=== PATIENT | female | born 1990 | race Caucasian/White ===

== ENCOUNTER 2016-08-30 16:31 | Inpatient (IN) | payer MEDICAID ==
[~2016-08-30] VITALS: Ht 167.6 cm; Wt 106.1 kg
[~2016-08-30 16:31] MED LIST: ZIPR80CA2 PO
[2016-08-30] MEDS ORDERED: HALOPERIDOL 5 MG TABLET PO PRN (17:15)
[2016-08-30 17:33] VITALS: BP 113/69
[2016-08-30] MEDS ORDERED: LORazepam 2 MG/ML VIAL ONE (18:09)
[2016-08-30 18:15] VITALS: BP 152/73
[2016-08-30] MEDS ORDERED: LORazepam 2 MG/ML VIAL IM ONE (18:15)
[2016-08-30] MEDS ORDERED: HALOPERIDOL LACTATE 5 MG/ML VIAL IM ONE (18:15)
[2016-08-30] MEDS ORDERED: DiphenhydrAMINE HCL 50 MG/ML VIAL IM ONE (18:15)
[2016-08-31 16:40] VITALS: BP 125/61
[2016-09-01 06:52] VITALS: BP 122/73
[2016-09-01 08:50] LABS: BASOPHILS % (AUTO) 0.3 % (0.0-2.0); HEMATOCRIT 37.4 % (36-46); HEMOGLOBIN 12.1 g/dL (12.0-16.0); LYMPHOCYTES # (AUTO) 2.3 K/uL (1.0-4.8); LYMPHOCYTES % (AUTO) 24.8 % (22.0-44.0); MEAN CORPUSCULAR HEMOGLOBIN 28.9 pg (26.0-34.0); MEAN CORPUSCULAR HGB CONC 32.2 G/dL (31.0-37.0); MEAN CORPUSCULAR VOLUME 90 fL (80-100); MONOCYTES # (AUTO) 0.5 K/uL (0.1-1.0); MONOCYTES % (AUTO) 5.1 % (2.0-9.0); NEUTROPHILS # (AUTO) 6.3 K/uL (1.8-7.7); NEUTROPHILS % (AUTO) 68.8 % (40.0-70.0); PLATELET COUNT (AUTO) 295 K/uL (150-450); RED BLOOD CELL COUNT(AUTO) 4.18 MIL/uL (4.00-5.20); RED CELL DISTRIBUTION WIDTH 13.9 % (11.5-14.5); WHITE BLOOD COUNT (AUTO) 9.2 K/uL (4.5-11.0)
[2016-09-01 08:58] LABS: HEMOGLOBIN A1C 5.5 % (4.5-6.2)
[2016-09-01] MEDS: RisperiDONE 3 MG TABLET PO SCH ×2 (09:15→17:00)
[2016-09-01 09:29] LABS: ALANINE AMINOTRANSFERASE 19 U/L (12-78); ALBUMIN 3.3 g/dL (3.4-5.0); ANION GAP 9 mmol/L (8-16); ASPARTATE AMINOTRANSFERASE 13 U/L (15-37); BILIRUBIN,TOTAL 0.2 mg/dL (0.1-1.0); CALCIUM, TOTAL 8.5 mg/dL (8.8-10.5); CARBON DIOXIDE 27 mmol/L (22-29); CHLORIDE 104 mmol/L (98-107); CHOL/HDL RATIO 2.3 (3.9-5.7); CREATININE 0.75 mg/dL (0.60-1.30); GLOMERULAR FILTR. RATE CALC > 60 mL/min (>60); POTASSIUM 3.7 mmol/L (3.5-5.1); SODIUM SERUM 140 mmol/L (136-145); THYROID STIMULATING HORMONE 0.86 uIU/mL (0.36-3.74); TOTAL PROTEIN, SERUM 6.9 g/dL (6.4-8.2); UREA NITROGEN, BLOOD 12 mg/dL (7-18)
[2016-09-01] MEDS: MAG HYDROX/AL HYDROX/SIMETH ES 30 ML SUSPENSION UDCUP PO PRN (18:43)
[2016-09-01] MEDS: ZOLPIDEM TARTRATE 10 MG TABLET PO PRN (20:51)
[2016-09-01] MEDS: ACETAMINOPHEN 325 MG TABLET PO PRN (20:52)
[2016-09-02 08:24] VITALS: BP 104/58
[2016-09-02] MEDS: RisperiDONE 3 MG TABLET PO SCH ×2 (08:58→16:45)
[2016-09-02 16:19] VITALS: BP 114/82
[2016-09-03 05:57] VITALS: BP 102/78
[2016-09-03 08:11] VITALS: BP 100/53
[2016-09-03] MEDS: RisperiDONE 3 MG TABLET PO SCH ×2 (09:05→16:19)
[2016-09-03 16:00] VITALS: BP 124/65
[2016-09-03] MEDS: MAG HYDROX/AL HYDROX/SIMETH ES 30 ML SUSPENSION UDCUP PO PRN (18:32)
[2016-09-03] MEDS: ACETAMINOPHEN 325 MG TABLET PO PRN (18:58)
[2016-09-03 18:59] VITALS: BP 128/70
[2016-09-04 05:33] VITALS: BP 117/71
[2016-09-04 08:27] VITALS: BP 98/51
[2016-09-04] MEDS: RisperiDONE 3 MG TABLET PO SCH ×3 (08:37→16:37)
[2016-09-04 09:26] VITALS: BP 108/74
[2016-09-04 16:00] VITALS: BP 112/69
[2016-09-04] MEDS: LORazepam 2 MG TABLET PO PRN (16:53)
[2016-09-04] MEDS: MAG HYDROX/AL HYDROX/SIMETH ES 30 ML SUSPENSION UDCUP PO PRN (16:53)
[2016-09-04] MEDS: ACETAMINOPHEN 325 MG TABLET PO PRN (17:33)
[2016-09-05 06:10] VITALS: BP 118/75
[2016-09-05] MEDS: LORazepam 2 MG TABLET PO PRN (08:42)
[2016-09-05] MEDS: RisperiDONE 3 MG TABLET PO SCH ×2 (08:42→16:56)
[2016-09-05 09:33] VITALS: BP 112/62
[2016-09-05 16:20] VITALS: BP 108/71
[2016-09-06 06:59] VITALS: BP 115/72
[2016-09-06 08:55] VITALS: BP 112/66
[2016-09-06] MEDS: LORazepam 2 MG TABLET PO PRN ×2 (08:57→16:46)
[2016-09-06] MEDS: RisperiDONE 3 MG TABLET PO SCH ×2 (08:58→17:00)
[2016-09-06 16:00] VITALS: BP 114/76
[2016-09-06] MEDS: ZOLPIDEM TARTRATE 10 MG TABLET PO PRN (20:31)
[2016-09-07 06:37] VITALS: BP 110/73
[2016-09-07] MEDS: RisperiDONE 3 MG TABLET PO SCH (08:55)
[2016-09-07] MEDS: LORazepam 2 MG TABLET PO PRN (08:55)
[2016-09-07] MEDS ORDERED: RISP3 PO (09:20)
[2016-09-07 09:27] VITALS: BP 123/81
== END 2016-09-07 14:04 | disposition home or self-care (01) | DRG 750 ==
LOC: B3A 17:08 → EDSTATUS 17:16
PROVIDERS: ADMIT Psychiatry & Neurology Psychiatry; ATTEND Psychiatry & Neurology Psychiatry
DX: F25.9 Schizoaffective disorder, unspecified (principal); Z91.14 Patient's other noncompliance with medication regimen; F32.9 Major depressive disorder, single episode, unspecified; F41.9 Anxiety disorder, unspecified; R03.0 Elevated blood-pressure reading, without diagnosis of hypertension
CPT/HCPCS: 83036; 84439; 84443; J1200; J1630; J2060

== ENCOUNTER 2017-03-11 09:01 | Inpatient (IN) | payer MEDICAID ==
[~2017-03-11] VITALS: Ht 172.7 cm; Wt 101.8 kg
[~2017-03-11 09:01] MED LIST changes: +RISP3 PO; -ZIPR80CA2 PO
[2017-03-11] MEDS ORDERED: DiphenhydrAMINE HCL 50 MG/ML VIAL IM ONE (09:15)
[2017-03-11] MEDS ORDERED: LORazepam 2 MG/ML VIAL IM ONE (09:15)
[2017-03-11] MEDS ORDERED: HALOPERIDOL LACTATE 5 MG/ML VIAL IM ONE (09:15)
[2017-03-11 09:24] LABS: BASOPHILS # (AUTO) 0.06 K/uL (0.00-0.20); BASOPHILS % (AUTO) 0.8 % (0.0-2.0); EOSINOPHILS # (AUTO) 0.03 K/uL (0.00-0.70); EOSINOPHILS % (AUTO) 0.39 % (1.0-6.0); HEMOGLOBIN 11.1 g/dL (12.0-16.0); LYMPHOCYTES # (AUTO) 1.6 K/uL (1.0-4.8); LYMPHOCYTES % (AUTO) 19.8 % (22.0-44.0); MEAN CORPUSCULAR HEMOGLOBIN 27.6 pg (26.0-34.0); MEAN CORPUSCULAR HGB CONC 32.8 G/dL (31.0-37.0); MEAN CORPUSCULAR VOLUME 84 fL (80-100); MONOCYTES # (AUTO) 0.5 K/uL (0.1-1.0); MONOCYTES % (AUTO) 6.3 % (2.0-9.0); NEUTROPHILS # (AUTO) 5.9 K/uL (1.8-7.7); NEUTROPHILS % (AUTO) 72.8 % (40.0-70.0); PLATELET COUNT (AUTO) 277 K/uL (150-450); RED BLOOD CELL COUNT(AUTO) 4.03 MIL/uL (4.00-5.20); RED CELL DISTRIBUTION WIDTH 15.6 % (11.5-14.5); WHITE BLOOD COUNT (AUTO) 8.1 K/uL (4.5-11.0)
[2017-03-11 09:32] LABS: ANION GAP 13 mmol/L (8-16); CALCIUM, TOTAL 8.9 mg/dL (8.8-10.5); CARBON DIOXIDE 24 mmol/L (22-29); CHLORIDE 103 mmol/L (98-107); CREATININE 0.67 mg/dL (0.60-1.30); GLOMERULAR FILTR. RATE CALC > 60 mL/min (>60); POTASSIUM 3.5 mmol/L (3.5-5.1); SODIUM SERUM 140 mmol/L (136-145); UREA NITROGEN, BLOOD 9 mg/dL (7-18)
[2017-03-11 09:38] LABS: ALANINE AMINOTRANSFERASE 32 U/L (12-78); ALBUMIN 4.4 g/dL (3.4-5.0); ASPARTATE AMINOTRANSFERASE 32 U/L (15-37); BILIRUBIN,TOTAL 0.5 mg/dL (0.1-1.0); TOTAL PROTEIN, SERUM 8.1 g/dL (6.4-8.2)
[2017-03-11] MEDS ORDERED: HALOPERIDOL 5 MG TABLET PO PRN (11:30)
[2017-03-11] MEDS ORDERED: ZOLPIDEM TARTRATE 10 MG TABLET PO PRN (11:30)
[2017-03-11 14:23] VITALS: BP 136/80
[2017-03-11] MEDS ORDERED: CloNIDine HCL 0.1 MG TABLET PO PRN (15:00)
[2017-03-11] MEDS: RisperiDONE 2 MG TABLET PO SCH (17:00)
[2017-03-11] MEDS ORDERED: INFLUENZA VIRUS VACCINE QVS 2017-18 (3YR+)/PF 60 MCG/0.5 ML SYRINGE IM ONE (17:00)
[2017-03-12] MEDS ORDERED: PNEUMOCOCCAL VACCINE POLYVALENT 0.5 ML VIAL [PPSV23] IM ONE (01:45)
[2017-03-12 08:00] VITALS: BP 112/78
[2017-03-12] MEDS: RisperiDONE 2 MG TABLET PO SCH ×2 (09:00→16:25)
[2017-03-12 16:32] VITALS: BP 117/60
[2017-03-12] MEDS ORDERED: ACETAMINOPHEN 325 MG TABLET PO PRN (19:45)
[2017-03-12] MEDS ORDERED: IBUPROFEN 400 MG TABLET PO PRN (19:45)
[2017-03-13 07:15] VITALS: BP 120/68
[2017-03-13] MEDS: RisperiDONE 2 MG TABLET PO SCH ×2 (09:00→17:00)
[2017-03-13] MEDS: LORazepam 2 MG TABLET PO PRN ×2 (09:22→17:37)
[2017-03-13 09:43] VITALS: BP 104/63
[2017-03-13 16:29] VITALS: BP 109/71
[2017-03-14 07:20] VITALS: BP 117/63
[2017-03-14 08:25] VITALS: BP 106/73
[2017-03-14] MEDS: RisperiDONE 2 MG TABLET PO SCH (09:00)
[2017-03-14] MEDS: LORazepam 2 MG TABLET PO PRN (10:39)
[2017-03-14] MEDS ORDERED: RISP2TAB76 PO (11:29)
== END 2017-03-14 13:26 | disposition home or self-care (01) | DRG 750 ==
LOC: EMS 09:02 → B3A 12:44
PROVIDERS: ADMIT Psychiatry & Neurology Psychiatry; ATTEND Psychiatry & Neurology Psychiatry
DX: F20.0 Paranoid schizophrenia (principal); I10 Essential (primary) hypertension; F41.9 Anxiety disorder, unspecified; D64.9 Anemia, unspecified; Z79.899 Other long term (current) drug therapy; Z28.21 Immunization not carried out because of patient refusal
CPT/HCPCS: 96372; 99291; G0480; J1200; J1630; J2060

== ENCOUNTER 2017-03-15 20:55 | Emergency (ER) | payer MEDICAID ==
[~2017-03-15] VITALS: Ht 170.2 cm; Wt 102.7 kg
[~2017-03-15 20:55] MED LIST changes: +RISP2TAB76 PO; -RISP3 PO
[2017-03-15 21:30] LABS: BASOPHILS # (AUTO) 0.06 K/uL (0.00-0.20); BASOPHILS % (AUTO) 0.5 % (0.0-2.0); EOSINOPHILS # (AUTO) 0.05 K/uL (0.00-0.70); EOSINOPHILS % (AUTO) 0.41 % (1.0-6.0); HEMATOCRIT 34.4 % (36-46); HEMOGLOBIN 11.4 g/dL (12.0-16.0); LYMPHOCYTES % (AUTO) 16.5 % (22.0-44.0); MEAN CORPUSCULAR HEMOGLOBIN 27.8 pg (26.0-34.0); MEAN CORPUSCULAR HGB CONC 33.1 G/dL (31.0-37.0); MEAN CORPUSCULAR VOLUME 84 fL (80-100); MONOCYTES # (AUTO) 0.9 K/uL (0.1-1.0); MONOCYTES % (AUTO) 7.4 % (2.0-9.0); NEUTROPHILS # (AUTO) 9.1 K/uL (1.8-7.7); NEUTROPHILS % (AUTO) 75.2 % (40.0-70.0); RED BLOOD CELL COUNT(AUTO) 4.09 MIL/uL (4.00-5.20); RED CELL DISTRIBUTION WIDTH 15.9 % (11.5-14.5)
[2017-03-15] MEDS ORDERED: METOCLOPRAMIDE HCL 5 MG/ML 2 ML VIAL IVP ONE (21:30)
[2017-03-15] MEDS ORDERED: DEXAMETHASONE SOD PHOS 4 MG/ML 5 ML VIAL IVP ONE (21:30)
[2017-03-15] MEDS ORDERED: DiphenhydrAMINE HCL 50 MG/ML VIAL IVP ONE (21:30)
[2017-03-15] MEDS ORDERED: KETOROLAC TROMETHAMINE 30 MG/ML VIAL IVP ONE (21:30)
[2017-03-15 21:40] LABS: WHITE BLOOD COUNT (AUTO) 13.8 K/uL (4.5-11.0)
[2017-03-15 21:42] LABS: ANION GAP 6 mmol/L (8-16); CARBON DIOXIDE 28 mmol/L (22-29); CHLORIDE 103 mmol/L (98-107); CREATININE 0.74 mg/dL (0.60-1.30); GLOMERULAR FILTR. RATE CALC > 60 mL/min (>60); POTASSIUM 3.5 mmol/L (3.5-5.1); SODIUM SERUM 137 mmol/L (136-145); UREA NITROGEN, BLOOD 9 mg/dL (7-18)
[2017-03-15 21:48] LABS: ALANINE AMINOTRANSFERASE 43 U/L (12-78); ALBUMIN 4.1 g/dL (3.4-5.0); ASPARTATE AMINOTRANSFERASE 36 U/L (15-37); BILIRUBIN,TOTAL 0.4 mg/dL (0.1-1.0); TOTAL PROTEIN, SERUM 7.4 g/dL (6.4-8.2)
[2017-03-15 22:04] LABS: PLATELET COUNT (AUTO) 169 K/uL (150-450); RBC MORPHOLOGY COMMENT NORMAL RBC MORPH
[2017-03-15 22:05] VITALS: BP 114/72
== END 2017-03-15 22:54 | disposition home or self-care (01) ==
LOC: EMS 20:56
DX: R44.0 Auditory hallucinations (principal); R51 Headache; F41.9 Anxiety disorder, unspecified; F31.9 Bipolar disorder, unspecified; F20.9 Schizophrenia, unspecified
CPT/HCPCS: 36415; 80053; 80307; 84703; 85025; 96374; 96375; 99284; G0480; J1100; J1200; J1885; J2765

== ENCOUNTER 2017-03-16 02:14 | Inpatient (IN) | payer MEDICAID ==
[~2017-03-16] VITALS: Ht 170.2 cm; Wt 105.0 kg
[2017-03-16] MEDS ORDERED: HALOPERIDOL 5 MG TABLET PO PRN (05:15)
[2017-03-16] MEDS ORDERED: ZOLPIDEM TARTRATE 10 MG TABLET PO PRN (05:15)
[2017-03-16 05:45] VITALS: BP 115/71
[2017-03-16] MEDS ORDERED: INFLUENZA VIRUS VACCINE QVS 2017-18 (3YR+)/PF 60 MCG/0.5 ML SYRINGE IM ONE (06:00)
[2017-03-16 08:24] VITALS: BP 95/45
[2017-03-16] MEDS: LORazepam 2 MG TABLET PO PRN (08:24)
[2017-03-16] MEDS: ACETAMINOPHEN 325 MG TABLET PO PRN (08:24)
[2017-03-16] MEDS: RisperiDONE 2 MG TABLET PO SCH ×2 (11:15→17:03)
[2017-03-16 20:12] VITALS: BP 124/69
[2017-03-17 08:44] VITALS: BP 117/72
[2017-03-17] MEDS: RisperiDONE 2 MG TABLET PO SCH ×2 (10:26→16:42)
[2017-03-17] MEDS: LORazepam 2 MG TABLET PO PRN (13:02)
[2017-03-17] MEDS: ACETAMINOPHEN 325 MG TABLET PO PRN ×2 (13:02→15:40)
[2017-03-17 15:38] VITALS: BP 117/68
[2017-03-17 16:46] VITALS: BP 119/64
[2017-03-18] MEDS: LORazepam 2 MG TABLET PO PRN ×2 (00:14→08:24)
[2017-03-18 08:20] VITALS: BP 124/72
[2017-03-18] MEDS: ACETAMINOPHEN 325 MG TABLET PO PRN ×2 (08:24→17:01)
[2017-03-18] MEDS: RisperiDONE 2 MG TABLET PO SCH ×2 (08:24→16:59)
[2017-03-18 16:07] VITALS: BP 106/69
[2017-03-18 16:58] VITALS: BP 114/72
[2017-03-19 08:00] VITALS: BP 104/64
[2017-03-19] MEDS: RisperiDONE 2 MG TABLET PO SCH ×2 (10:16→17:35)
[2017-03-19] MEDS: ACETAMINOPHEN 325 MG TABLET PO PRN (12:27)
[2017-03-19 18:51] VITALS: BP 110/66
[2017-03-20 07:20] VITALS: BP 114/50
[2017-03-20 07:25] LABS: BASOPHILS % (AUTO) 0.2 % (0.0-2.0); EOSINOPHILS % (AUTO) 0.7 % (1.0-6.0); HEMATOCRIT 33.5 % (36-46); HEMOGLOBIN 11.2 g/dL (12.0-16.0); LYMPHOCYTES # (AUTO) 1.8 K/uL (1.0-4.8); LYMPHOCYTES % (AUTO) 16.5 % (22.0-44.0); MEAN CORPUSCULAR HEMOGLOBIN 27.7 pg (26.0-34.0); MEAN CORPUSCULAR HGB CONC 33.3 G/dL (31.0-37.0); MEAN CORPUSCULAR VOLUME 83 fL (80-100); MONOCYTES # (AUTO) 0.8 K/uL (0.1-1.0); MONOCYTES % (AUTO) 6.8 % (2.0-9.0); NEUTROPHILS # (AUTO) 8.5 K/uL (1.8-7.7); NEUTROPHILS % (AUTO) 75.8 % (40.0-70.0); PLATELET COUNT (AUTO) 272 K/uL (150-450); RED BLOOD CELL COUNT(AUTO) 4.04 MIL/uL (4.00-5.20); RED CELL DISTRIBUTION WIDTH 15.3 % (11.5-14.5); WHITE BLOOD COUNT (AUTO) 11.2 K/uL (4.5-11.0)
[2017-03-20] MEDS: ACETAMINOPHEN 325 MG TABLET PO PRN ×2 (07:26→16:50)
[2017-03-20 07:30] LABS: HEMOGLOBIN A1C 4.7 % (4.5-6.2)
[2017-03-20 08:12] LABS: CHOL/HDL RATIO 2.8 (3.9-5.7); THYROID STIMULATING HORMONE 1.61 uIU/mL (0.36-3.74)
[2017-03-20 08:26] VITALS: BP 130/75
[2017-03-20] MEDS: RisperiDONE 2 MG TABLET PO SCH ×2 (09:04→16:45)
[2017-03-20] MEDS: LORazepam 2 MG TABLET PO PRN (09:06)
[2017-03-20 16:51] VITALS: BP 104/60
[2017-03-21 03:43] VITALS: BP 101/63
[2017-03-21] MEDS: ACETAMINOPHEN 325 MG TABLET PO PRN ×2 (03:51→19:39)
[2017-03-21 08:43] VITALS: BP 112/69
[2017-03-21] MEDS: RisperiDONE 2 MG TABLET PO SCH ×2 (09:15→16:01)
[2017-03-21 16:15] VITALS: BP 114/68
[2017-03-21] MEDS: LORazepam 2 MG TABLET PO PRN (17:22)
[2017-03-21 19:36] VITALS: BP 89/65
[2017-03-22] MEDS: RisperiDONE 2 MG TABLET PO SCH (09:32)
[2017-03-22] MEDS: ACETAMINOPHEN 325 MG TABLET PO PRN (09:35)
== END 2017-03-22 14:10 | disposition home or self-care (01) | DRG 750 ==
LOC: EMS 02:15 → 3EI 04:30
PROVIDERS: ATTEND Psychiatry & Neurology Psychiatry
DX: F25.1 Schizoaffective disorder, depressive type (principal); I10 Essential (primary) hypertension; D64.9 Anemia, unspecified; D72.829 Elevated white blood cell count, unspecified; F31.9 Bipolar disorder, unspecified; Z79.899 Other long term (current) drug therapy; F41.9 Anxiety disorder, unspecified; Z28.21 Immunization not carried out because of patient refusal
CPT/HCPCS: 83036; 84443; 87081; 99285

== ENCOUNTER 2017-04-08 14:27 | Inpatient (IN) | payer MEDICAID ==
[~2017-04-08] VITALS: Ht 170.2 cm; Wt 103.7 kg
[2017-04-08 17:32] LABS: BASOPHILS # (AUTO) 0.01 K/uL (0.00-0.20); BASOPHILS % (AUTO) 0.1 % (0.0-2.0); EOSINOPHILS # (AUTO) 0.05 K/uL (0.00-0.70); EOSINOPHILS % (AUTO) 0.36 % (1.0-6.0); HEMATOCRIT 36.5 % (36-46); HEMOGLOBIN 11.9 g/dL (12.0-16.0); LYMPHOCYTES # (AUTO) 2.3 K/uL (1.0-4.8); LYMPHOCYTES % (AUTO) 17.9 % (22.0-44.0); MEAN CORPUSCULAR HEMOGLOBIN 27.2 pg (26.0-34.0); MEAN CORPUSCULAR HGB CONC 32.6 G/dL (31.0-37.0); MEAN CORPUSCULAR VOLUME 84 fL (80-100); MONOCYTES # (AUTO) 0.3 K/uL (0.1-1.0); MONOCYTES % (AUTO) 2.5 % (2.0-9.0); NEUTROPHILS # (AUTO) 10.2 K/uL (1.8-7.7); NEUTROPHILS % (AUTO) 79.2 % (40.0-70.0); PLATELET COUNT (AUTO) 339 K/uL (150-450); RED BLOOD CELL COUNT(AUTO) 4.37 MIL/uL (4.00-5.20); RED CELL DISTRIBUTION WIDTH 15.5 % (11.5-14.5); WHITE BLOOD COUNT (AUTO) 12.8 K/uL (4.5-11.0)
[2017-04-08 17:47] LABS: ANION GAP 11 mmol/L (8-16); CALCIUM, TOTAL 9.3 mg/dL (8.8-10.5); CARBON DIOXIDE 27 mmol/L (22-29); CHLORIDE 102 mmol/L (98-107); CREATININE 0.77 mg/dL (0.60-1.30); GLOMERULAR FILTR. RATE CALC > 60 mL/min (>60); POTASSIUM 3.6 mmol/L (3.5-5.1); SODIUM SERUM 140 mmol/L (136-145); UREA NITROGEN, BLOOD 8 mg/dL (7-18)
[2017-04-08 18:01] LABS: ALANINE AMINOTRANSFERASE 25 U/L (12-78); ALBUMIN 4.2 g/dL (3.4-5.0); ASPARTATE AMINOTRANSFERASE 14 U/L (15-37); BILIRUBIN,TOTAL 0.4 mg/dL (0.1-1.0); THYROID STIMULATING HORMONE 1.41 uIU/mL (0.36-3.74); TOTAL PROTEIN, SERUM 8.4 g/dL (6.4-8.2)
[2017-04-08] MEDS ORDERED: LORazepam 2 MG/ML VIAL IM ONE (18:45)
[2017-04-08] MEDS ORDERED: HALOPERIDOL LACTATE 5 MG/ML VIAL IM ONE (18:45)
[2017-04-08] MEDS ORDERED: ZOLPIDEM TARTRATE 10 MG TABLET PO PRN (19:00)
[2017-04-08] MEDS ORDERED: HALOPERIDOL 5 MG TABLET PO PRN (19:00)
[2017-04-08] MEDS: RisperiDONE 2 MG TABLET PO SCH (20:51)
[2017-04-08] MEDS ORDERED: INFLUENZA VIRUS VACCINE QVS 2017-18 (3YR+)/PF 60 MCG/0.5 ML SYRINGE IM ONE (22:15)
[2017-04-09 08:00] VITALS: BP 104/60
[2017-04-09] MEDS: RisperiDONE 2 MG TABLET PO SCH (08:19)
[2017-04-09] MEDS ORDERED: IBUPROFEN 400 MG TABLET PO PRN (11:45)
[2017-04-09] MEDS ORDERED: ACETAMINOPHEN 325 MG TABLET PO PRN (11:45)
[2017-04-09] MEDS: LORazepam 2 MG TABLET PO PRN (13:37)
[2017-04-09] MEDS: RisperiDONE 3 MG TABLET PO SCH (17:30)
[2017-04-09 18:00] VITALS: BP 112/63
[2017-04-10] MEDS: RisperiDONE 3 MG TABLET PO SCH ×2 (08:08→16:06)
[2017-04-10 08:13] VITALS: BP 121/74
[2017-04-10] MEDS: LORazepam 2 MG TABLET PO PRN (13:15)
[2017-04-10 16:00] VITALS: BP 108/69
[2017-04-11] MEDS: RisperiDONE 3 MG TABLET PO SCH ×2 (08:07→17:06)
[2017-04-11 09:08] LABS: BASOPHILS # (AUTO) 0.05 K/uL (0.00-0.20); BASOPHILS % (AUTO) 0.5 % (0.0-2.0); EOSINOPHILS # (AUTO) 0.07 K/uL (0.00-0.70); EOSINOPHILS % (AUTO) 0.66 % (1.0-6.0); HEMATOCRIT 36.4 % (36-46); HEMOGLOBIN 11.7 g/dL (12.0-16.0); LYMPHOCYTES # (AUTO) 1.9 K/uL (1.0-4.8); LYMPHOCYTES % (AUTO) 17.2 % (22.0-44.0); MEAN CORPUSCULAR HEMOGLOBIN 27.6 pg (26.0-34.0); MEAN CORPUSCULAR HGB CONC 32.2 G/dL (31.0-37.0); MEAN CORPUSCULAR VOLUME 86 fL (80-100); MONOCYTES # (AUTO) 0.5 K/uL (0.1-1.0); MONOCYTES % (AUTO) 4.9 % (2.0-9.0); NEUTROPHILS # (AUTO) 8.3 K/uL (1.8-7.7); NEUTROPHILS % (AUTO) 76.7 % (40.0-70.0); PLATELET COUNT (AUTO) 295 K/uL (150-450); RED BLOOD CELL COUNT(AUTO) 4.25 MIL/uL (4.00-5.20); RED CELL DISTRIBUTION WIDTH 15.3 % (11.5-14.5); WHITE BLOOD COUNT (AUTO) 10.9 K/uL (4.5-11.0)
[2017-04-11 09:20] VITALS: BP 99/64
[2017-04-11 16:21] VITALS: BP 112/67
[2017-04-12] MEDS: RisperiDONE 3 MG TABLET PO SCH ×2 (09:18→17:34)
[2017-04-12 09:20] VITALS: BP 117/71
[2017-04-12 17:03] VITALS: BP 105/61
[2017-04-12] MEDS: LORazepam 2 MG TABLET PO PRN (20:26)
[2017-04-13] MEDS: RisperiDONE 3 MG TABLET PO SCH (09:01)
[2017-04-13 09:21] VITALS: BP 103/60
== END 2017-04-13 15:38 | disposition home or self-care (01) | DRG 750 ==
LOC: EMS 14:28 → 3EC 20:42 → 3EI 04-11 22:00
PROVIDERS: ADMIT Psychiatry & Neurology Psychiatry; ATTEND Psychiatry & Neurology Psychiatry
DX: F20.0 Paranoid schizophrenia (principal); I10 Essential (primary) hypertension; Z91.83 Wandering in diseases classified elsewhere; F41.9 Anxiety disorder, unspecified; D72.829 Elevated white blood cell count, unspecified; D64.9 Anemia, unspecified; Z28.21 Immunization not carried out because of patient refusal; Z79.899 Other long term (current) drug therapy
CPT/HCPCS: 84443; 87081; 96372; 99285; G0480; J1630; J2060

== ENCOUNTER 2017-06-24 17:50 | Inpatient (IN) | payer MEDICAID ==
[~2017-06-24] VITALS: Ht 170.2 cm; Wt 104.8 kg
[2017-06-24] MEDS ORDERED: HALOPERIDOL 5 MG TABLET PO PRN (20:45)
[2017-06-24] MEDS ORDERED: ZOLPIDEM TARTRATE 10 MG TABLET PO PRN (20:45)
[2017-06-24 21:18] VITALS: BP 104/69
[2017-06-24] MEDS ORDERED: INFLUENZA VIRUS VACCINE QVS 2017-18 (3YR+)/PF 60 MCG/0.5 ML SYRINGE IM ONE (21:45)
[2017-06-25 06:00] VITALS: BP 100/61
[2017-06-25 08:08] LABS: BASOPHILS % (AUTO) 0.3 % (0.0-2.0); EOSINOPHILS % (AUTO) 0.7 % (1.0-6.0); HEMATOCRIT 31.4 % (36-46); HEMOGLOBIN 10.3 g/dL (12.0-16.0); LYMPHOCYTES # (AUTO) 2.4 K/uL (1.0-4.8); LYMPHOCYTES % (AUTO) 24.4 % (22.0-44.0); MEAN CORPUSCULAR HEMOGLOBIN 26.6 pg (26.0-34.0); MEAN CORPUSCULAR HGB CONC 32.8 G/dL (31.0-37.0); MEAN CORPUSCULAR VOLUME 81 fL (80-100); MONOCYTES # (AUTO) 0.6 K/uL (0.1-1.0); MONOCYTES % (AUTO) 6.6 % (2.0-9.0); NEUTROPHILS # (AUTO) 6.6 K/uL (1.8-7.7); PLATELET COUNT (AUTO) 340 K/uL (150-450); RED BLOOD CELL COUNT(AUTO) 3.86 MIL/uL (4.00-5.20); RED CELL DISTRIBUTION WIDTH 14.8 % (11.5-14.5)
[2017-06-25 08:27] VITALS: BP 102/61
[2017-06-25 08:39] LABS: HEMOGLOBIN A1C 5.5 % (4.5-6.2)
[2017-06-25 08:54] LABS: ALANINE AMINOTRANSFERASE 41 U/L (12-78); ALBUMIN 3.4 g/dL (3.4-5.0); ALKALINE PHOSPHATASE 120 U/L (46-116); ANION GAP 8 mmol/L (8-16); ASPARTATE AMINOTRANSFERASE 20 U/L (15-37); BILIRUBIN,TOTAL 0.3 mg/dL (0.1-1.0); CALCIUM, TOTAL 8.6 mg/dL (8.8-10.5); CARBON DIOXIDE 26 mmol/L (22-29); CHLORIDE 105 mmol/L (98-107); CHOL/HDL RATIO 2.1 (3.9-5.7); CHOLESTEROL 137 mg/dL (131-200); CREATININE 0.52 mg/dL (0.60-1.30); FREE T4 (FREE THYROXINE) 0.88 ng/dL (0.76-1.46); GLOMERULAR FILTR. RATE CALC > 60 mL/min (>60); GLUCOSE,RANDOM 83 mg/dL (70-110); HCG,QUANTITATIVE < 1 mIU/mL (0-6); HDL CHOLESTEROL 66 mg/dL (40-60); LDL CHOL (CALC.) 65 mg/dL (0-130); SODIUM SERUM 139 mmol/L (136-145); THYROID STIMULATING HORMONE 1.64 uIU/mL (0.36-3.74); TRIGLYCERIDES 31 mg/dL (15-150); UREA NITROGEN, BLOOD 9 mg/dL (7-18)
[2017-06-25] MEDS ORDERED: IBUPROFEN 400 MG TABLET PO PRN (09:00)
[2017-06-25] MEDS ORDERED: ACETAMINOPHEN 325 MG TABLET PO PRN (09:00)
[2017-06-25] MEDS: RisperiDONE 3 MG TABLET PO SCH ×2 (10:00→16:15)
[2017-06-25 16:00] VITALS: BP 118/65
[2017-06-25] MEDS: FERROUS SULFATE 325 MG EC TABLET PO SCH (16:15)
[2017-06-25] MEDS: LORazepam 2 MG TABLET PO PRN (16:35)
[2017-06-26 05:45] VITALS: BP 11/68
[2017-06-26] MEDS: FERROUS SULFATE 325 MG EC TABLET PO SCH ×2 (06:45→16:00)
[2017-06-26] MEDS: RisperiDONE 3 MG TABLET PO SCH ×2 (08:22→16:00)
[2017-06-26 09:31] VITALS: BP 114/60
[2017-06-26] MEDS: LORazepam 2 MG TABLET PO PRN (15:54)
[2017-06-26 16:13] VITALS: BP 112/68
[2017-06-27 05:47] VITALS: BP 111/69
[2017-06-27] MEDS: FERROUS SULFATE 325 MG EC TABLET PO SCH ×2 (07:16→16:14)
[2017-06-27 08:25] VITALS: BP 122/64
[2017-06-27] MEDS: RisperiDONE 3 MG TABLET PO SCH ×2 (08:33→16:14)
[2017-06-27 09:26] LABS: CHOL/HDL RATIO 2.5 (3.9-5.7)
[2017-06-27] MEDS: LORazepam 2 MG TABLET PO PRN (09:27)
[2017-06-27 16:27] VITALS: BP 110/73
[2017-06-28 06:31] VITALS: BP 108/62
[2017-06-28] MEDS: FERROUS SULFATE 325 MG EC TABLET PO SCH ×2 (06:46→16:16)
[2017-06-28] MEDS ORDERED: FERR-89 PO (07:50)
[2017-06-28] MEDS: RisperiDONE 3 MG TABLET PO SCH ×2 (08:11→16:16)
[2017-06-28 08:18] VITALS: BP 132/64
[2017-06-28] MEDS: LORazepam 2 MG TABLET PO PRN ×2 (08:59→14:14)
[2017-06-28 16:11] VITALS: BP 111/67
[2017-06-29 00:57] VITALS: BP 102/63
[2017-06-29] MEDS: FERROUS SULFATE 325 MG EC TABLET PO SCH (06:48)
[2017-06-29] MEDS: RisperiDONE 3 MG TABLET PO SCH (08:02)
[2017-06-29 08:24] VITALS: BP 110/69
== END 2017-06-29 09:55 | disposition home or self-care (01) | DRG 750 ==
LOC: B2S 20:48
PROVIDERS: ATTEND Psychiatry & Neurology Psychiatry
DX: F25.9 Schizoaffective disorder, unspecified (principal); I10 Essential (primary) hypertension; D64.9 Anemia, unspecified
CPT/HCPCS: 83036; 84439; 84443; 90471

== ENCOUNTER 2017-12-04 09:32 | Inpatient (IN) | payer MEDICAID ==
[~2017-12-04] VITALS: Ht 170.2 cm; Wt 96.2 kg
[~2017-12-04 09:32] MED LIST changes: -RISP2TAB76 PO; +RISP4 PO
[2017-12-04] MEDS ORDERED: LORazepam 2 MG TABLET PO PRN (10:30)
[2017-12-04] MEDS ORDERED: ZOLPIDEM TARTRATE 10 MG TABLET PO PRN ×2 (10:30)
[2017-12-04] MEDS ORDERED: HALOPERIDOL 5 MG TABLET PO PRN ×2 (10:30)
[2017-12-04 18:17] VITALS: BP 118/68
[2017-12-04] MEDS ORDERED: LOPERAMIDE HCL 2 MG CAPSULE PO PRN (19:15)
[2017-12-04] MEDS ORDERED: GuaiFENesin/D-METHORPHAN [SUGAR-FREE] 200-20MG/10 ML SYRUP UDCUP PO PRN (19:15)
[2017-12-04] MEDS ORDERED: NICOTINE 14 MG/24 HOUR PATCH TD PRN (19:15)
[2017-12-04] MEDS ORDERED: CloNIDine HCL 0.1 MG TABLET PO PRN (19:15)
[2017-12-04] MEDS ORDERED: ONDANSETRON HCL 4 MG TABLET PO PRN (19:15)
[2017-12-04] MEDS ORDERED: MAG HYDROX/AL HYDROX/SIMETH ES 30 ML SUSPENSION UDCUP PO PRN (19:15)
[2017-12-04] MEDS ORDERED: ALBUTEROL SULFATE HFA 90 MCG/PUFF 8 GM INHALER IH PRN (19:15)
[2017-12-04] MEDS ORDERED: DOCUSATE SODIUM 100 MG CAPSULE PO PRN (19:15)
[2017-12-04] MEDS ORDERED: ACETAMINOPHEN 325 MG TABLET PO PRN (19:15)
[2017-12-04] MEDS ORDERED: MAGNESIUM HYDROXIDE SUSPENSION 30 ML UDCUP PO PRN (19:15)
[2017-12-04] MEDS ORDERED: PETROLATUM,WHITE 71 GM JELLY TP PRN (19:15)
[2017-12-05 01:23] VITALS: BP 107/64
[2017-12-05 08:22] VITALS: BP 105/58
[2017-12-05] MEDS: RisperiDONE 2 MG TABLET PO SCH ×2 (10:26→20:09)
[2017-12-05 16:00] VITALS: BP 126/71
[2017-12-06 00:31] VITALS: BP 114/79
[2017-12-06 08:21] VITALS: BP 105/71
[2017-12-06] MEDS: RisperiDONE 2 MG TABLET PO SCH ×2 (08:28→20:36)
[2017-12-06 16:15] VITALS: BP 105/66
[2017-12-06] MEDS: LORazepam 2 MG TABLET PO PRN (18:48)
[2017-12-07 06:05] VITALS: BP 102/68
[2017-12-07 08:32] VITALS: BP 98/53
[2017-12-07] MEDS: RisperiDONE 2 MG TABLET PO SCH (08:42)
[2017-12-07] MEDS: LORazepam 2 MG TABLET PO PRN ×2 (10:27→16:46)
[2017-12-07 16:30] VITALS: BP 107/67
[2017-12-07] MEDS: RisperiDONE 3 MG TABLET PO SCH (20:26)
[2017-12-08 07:20] VITALS: BP 106/66
[2017-12-08 08:42] VITALS: BP 102/79
[2017-12-08] MEDS: RisperiDONE 3 MG TABLET PO SCH ×2 (08:50→20:35)
[2017-12-08 13:00] VITALS: BP 120/67
[2017-12-08] MEDS: LORazepam 2 MG TABLET PO PRN (13:01)
[2017-12-08 16:13] VITALS: BP 106/62
[2017-12-09 06:36] VITALS: BP 104/66
[2017-12-09 08:45] VITALS: BP 133/84
[2017-12-09] MEDS: RisperiDONE 3 MG TABLET PO SCH ×2 (08:45→20:57)
[2017-12-09] MEDS: LORazepam 2 MG TABLET PO PRN (10:40)
[2017-12-09 16:26] VITALS: BP 120/80
[2017-12-10 07:12] VITALS: BP 117/61
[2017-12-10 08:21] VITALS: BP 112/45
[2017-12-10] MEDS: RisperiDONE 3 MG TABLET PO SCH ×2 (08:48→20:21)
[2017-12-10 11:30] VITALS: BP 110/66
[2017-12-10] MEDS: LORazepam 2 MG TABLET PO PRN (11:41)
[2017-12-10] MEDS: IBUPROFEN 400 MG TABLET PO PRN (12:20)
[2017-12-10 16:22] VITALS: BP 104/63
[2017-12-11 06:52] VITALS: BP 100/60
[2017-12-11 08:21] VITALS: BP 148/62
[2017-12-11] MEDS: RisperiDONE 3 MG TABLET PO SCH ×2 (08:30→20:22)
[2017-12-11] MEDS: LORazepam 2 MG TABLET PO PRN (08:36)
[2017-12-11 17:20] VITALS: BP 110/63
[2017-12-11] MEDS: IBUPROFEN 400 MG TABLET PO PRN ×2 (17:32→17:35)
[2017-12-12 00:18] VITALS: BP 112/66
[2017-12-12 08:26] VITALS: BP 118/69
[2017-12-12] MEDS: RisperiDONE 3 MG TABLET PO SCH ×2 (08:44→20:19)
[2017-12-12] MEDS: LORazepam 2 MG TABLET PO PRN (08:44)
[2017-12-12 17:12] VITALS: BP 110/60
[2017-12-13 07:19] VITALS: BP 104/60
[2017-12-13 08:15] VITALS: BP 108/64
[2017-12-13] MEDS: RisperiDONE 3 MG TABLET PO SCH (08:53)
[2017-12-13] MEDS: LORazepam 2 MG TABLET PO PRN (09:26)
[2017-12-13] MEDS ORDERED: RISP3 PO (12:20)
== END 2017-12-13 12:45 | disposition home or self-care (01) | DRG 750 ==
LOC: EMS 09:33 → B3A 15:33
DX: F20.0 Paranoid schizophrenia (principal); I10 Essential (primary) hypertension; G47.00 Insomnia, unspecified; F31.9 Bipolar disorder, unspecified; Z91.5 Personal history of self-harm; Z79.899 Other long term (current) drug therapy; Z88.8 Allergy status to other drugs, medicaments and biological substances
CPT/HCPCS: 99285

== ENCOUNTER 2017-12-16 10:02 | Inpatient (IN) | payer MEDICAID ==
[~2017-12-16] VITALS: Ht 170.2 cm; Wt 98.0 kg
[~2017-12-16 10:02] MED LIST changes: +RISP3 PO; -RISP4 PO
[2017-12-16 11:53] VITALS: BP 107/69
[2017-12-16] MEDS ORDERED: HALOPERIDOL 5 MG TABLET PO PRN (12:15)
[2017-12-16] MEDS ORDERED: ZOLPIDEM TARTRATE 10 MG TABLET PO PRN (12:15)
[2017-12-16] MEDS ORDERED: PNEUMOCOCCAL VACCINE POLYVALENT 0.5 ML VIAL [PPSV23] IM ONE (13:00)
[2017-12-16] MEDS ORDERED: IBUPROFEN 400 MG TABLET PO PRN ×2 (13:00→14:45)
[2017-12-16] MEDS ORDERED: ACETAMINOPHEN 325 MG TABLET PO PRN ×2 (13:00→14:45)
[2017-12-16] MEDS ORDERED: DOCUSATE SODIUM 100 MG CAPSULE PO PRN (14:45)
[2017-12-16] MEDS ORDERED: ONDANSETRON HCL 4 MG TABLET PO PRN (14:45)
[2017-12-16] MEDS ORDERED: PETROLATUM,WHITE 71 GM JELLY TP PRN (14:45)
[2017-12-16] MEDS ORDERED: NICOTINE 14 MG/24 HOUR PATCH TD PRN (14:45)
[2017-12-16] MEDS ORDERED: LOPERAMIDE HCL 2 MG CAPSULE PO PRN (14:45)
[2017-12-16] MEDS ORDERED: ALBUTEROL SULFATE HFA 90 MCG/PUFF 8 GM INHALER IH PRN (14:45)
[2017-12-16] MEDS ORDERED: MAGNESIUM HYDROXIDE SUSPENSION 30 ML UDCUP PO PRN (14:45)
[2017-12-16] MEDS ORDERED: CloNIDine HCL 0.1 MG TABLET PO PRN (14:45)
[2017-12-16] MEDS ORDERED: MAG HYDROX/AL HYDROX/SIMETH ES 30 ML SUSPENSION UDCUP PO PRN (14:45)
[2017-12-16] MEDS ORDERED: GuaiFENesin/D-METHORPHAN [SUGAR-FREE] 200-20MG/10 ML SYRUP UDCUP PO PRN (14:45)
[2017-12-16] MEDS: RisperiDONE 3 MG TABLET PO SCH (20:54)
[2017-12-16] MEDS ORDERED: RisperiDONE 3 MG TABLET PO SCH (21:00)
[2017-12-17 07:08] VITALS: BP 112/61
[2017-12-17] MEDS: RisperiDONE 3 MG TABLET PO SCH ×2 (08:26→20:37)
[2017-12-17 08:56] VITALS: BP 108/72
[2017-12-17] MEDS: LORazepam 2 MG TABLET PO PRN ×2 (09:17→16:48)
[2017-12-17 10:16] LABS: AMPHET/METH SCREEN,URINE NEGATIVE (NEGATIVE); APPEARANCE,URINE CLEAR (CLEAR); BARBITURATE SCREEN, URINE NEGATIVE (NEGATIVE); BENZODIAZEPINES SCREEN,URINE NEGATIVE (NEGATIVE); BILIRUBIN,URINE NEGATIVE (NEGATIVE); CANNABINOID SCREEN,URINE NEGATIVE (NEGATIVE); COCAINE SCREEN,URINE NEGATIVE (NEGATIVE); GLUCOSE, URINE (UA) NEGATIVE (NEGATIVE); KETONES,URINE NEGATIVE (NEGATIVE); LEUKOCYTE ESTERASE ,URINE NEGATIVE (NEGATIVE); METHADONE SCREEN, URINE NEGATIVE (NEGATIVE); NITRATE,URINE NEGATIVE (NEGATIVE); OCCULT BLOOD,URINE NEGATIVE (NEGATIVE); OPIATE SCREEN,URINE NEGATIVE (NEGATIVE); PH,URINE 6.5 (5.0-8.0); PROTEIN,URINE NEGATIVE (NEGATIVE); UROBILINOGEN,URINE 0.2 mg/dL (<=1.0)
[2017-12-17 10:18] LABS: PHENCYCLIDINE SCREEN,URINE NEGATIVE (NEGATIVE)
[2017-12-17 16:08] VITALS: BP 109/69
[2017-12-18 03:57] VITALS: BP 110/70
[2017-12-18] MEDS: LORazepam 2 MG TABLET PO PRN ×2 (08:19→13:39)
[2017-12-18] MEDS: RisperiDONE 3 MG TABLET PO SCH (08:19)
[2017-12-18 08:26] VITALS: BP 108/70
== END 2017-12-18 15:50 | disposition home or self-care (01) | DRG 750 ==
LOC: B3A 12:30
PROVIDERS: ADMIT Psychiatry & Neurology Psychiatry; ATTEND Psychiatry & Neurology Psychiatry
DX: F20.0 Paranoid schizophrenia (principal); E83.51 Hypocalcemia; E88.09 Other disorders of plasma-protein metabolism, not elsewhere classified; I10 Essential (primary) hypertension; F32.9 Major depressive disorder, single episode, unspecified; Z88.8 Allergy status to other drugs, medicaments and biological substances
CPT/HCPCS: 80307; 87081

== ENCOUNTER 2018-01-05 02:35 | Inpatient (IN) | payer MEDICAID ==
[~2018-01-05] VITALS: Ht 170.2 cm; Wt 94.4 kg
[2018-01-05] MEDS ORDERED: RISP3 PO (03:11)
[2018-01-05] MEDS ORDERED: ZOLPIDEM TARTRATE 10 MG TABLET PO PRN (03:30)
[2018-01-05 04:39] VITALS: BP 122/73
[2018-01-05] MEDS ORDERED: LOPERAMIDE HCL 2 MG CAPSULE PO PRN (07:15)
[2018-01-05] MEDS ORDERED: PETROLATUM,WHITE 71 GM JELLY TP PRN (07:15)
[2018-01-05] MEDS ORDERED: ACETAMINOPHEN 325 MG TABLET PO PRN (07:15)
[2018-01-05] MEDS ORDERED: ONDANSETRON HCL 4 MG TABLET PO PRN (07:15)
[2018-01-05] MEDS ORDERED: MAGNESIUM HYDROXIDE SUSPENSION 30 ML UDCUP PO PRN (07:15)
[2018-01-05] MEDS ORDERED: DOCUSATE SODIUM 100 MG CAPSULE PO PRN (07:15)
[2018-01-05] MEDS ORDERED: CloNIDine HCL 0.1 MG TABLET PO PRN (07:15)
[2018-01-05] MEDS ORDERED: MAG HYDROX/AL HYDROX/SIMETH ES 30 ML SUSPENSION UDCUP PO PRN (07:15)
[2018-01-05] MEDS ORDERED: GuaiFENesin/D-METHORPHAN [SUGAR-FREE] 200-20MG/10 ML SYRUP UDCUP PO PRN (07:15)
[2018-01-05] MEDS ORDERED: NICOTINE 14 MG/24 HOUR PATCH TD PRN (07:15)
[2018-01-05] MEDS ORDERED: IBUPROFEN 400 MG TABLET PO PRN (07:15)
[2018-01-05] MEDS ORDERED: ALBUTEROL SULFATE HFA 90 MCG/PUFF 8 GM INHALER IH PRN (07:15)
[2018-01-05 08:38] VITALS: BP 101/64
[2018-01-05 16:00] VITALS: BP 132/78
[2018-01-05] MEDS: RisperiDONE 3 MG TABLET PO SCH (17:00)
[2018-01-06 04:19] VITALS: BP 130/76
[2018-01-06 08:01] VITALS: BP 128/72
[2018-01-06] MEDS: RisperiDONE 3 MG TABLET PO SCH ×2 (08:02→09:00)
[2018-01-06] MEDS: ARIPiprazole 10 MG TABLET PO SCH (11:30)
[2018-01-06 16:35] VITALS: BP 105/54
[2018-01-07 08:09] VITALS: BP 97/60
[2018-01-07] MEDS: ARIPiprazole 10 MG TABLET PO SCH (09:00)
[2018-01-07 16:32] VITALS: BP 117/74
[2018-01-08 06:59] VITALS: BP 114/78
[2018-01-08 08:12] VITALS: BP 121/68
[2018-01-08] MEDS: ARIPiprazole 10 MG TABLET PO SCH (08:30)
[2018-01-09 08:01] VITALS: BP 140/92
[2018-01-09] MEDS: ARIPiprazole 10 MG TABLET PO SCH (08:42)
[2018-01-09] MEDS: LORazepam 2 MG TABLET PO PRN ×2 (08:42→13:29)
[2018-01-09 16:26] VITALS: BP 126/84
[2018-01-10] MEDS: OLANZapine 5 MG TABLET PO PRN (08:12)
[2018-01-10] MEDS: LORazepam 2 MG TABLET PO PRN (08:12)
[2018-01-10] MEDS ORDERED: ARIPiprazole 15 MG TABLET PO SCH (09:00)
[2018-01-10 17:35] VITALS: BP 112/67
[2018-01-11] MEDS ORDERED: ARIPiprazole 10 MG TABLET PO SCH (09:00)
[2018-01-11 09:12] VITALS: BP 117/76
[2018-01-11] MEDS: LORazepam 2 MG TABLET PO PRN ×2 (09:32→16:34)
[2018-01-11 16:12] VITALS: BP 132/76
[2018-01-11] MEDS: OLANZapine 5 MG TABLET PO PRN (16:34)
[2018-01-12 08:30] VITALS: BP 102/63
[2018-01-12] MEDS: LORazepam 2 MG TABLET PO PRN (09:48)
[2018-01-12] MEDS: ARIPiprazole 15 MG TABLET PO SCH (09:48)
[2018-01-12 16:03] VITALS: BP 130/76
[2018-01-13 01:52] VITALS: BP 115/78
[2018-01-13] MEDS: ARIPiprazole 15 MG TABLET PO SCH (08:08)
[2018-01-13] MEDS: LORazepam 2 MG TABLET PO PRN ×2 (08:08→16:51)
[2018-01-13] MEDS: OLANZapine 5 MG TABLET PO PRN (08:08)
[2018-01-13 16:33] VITALS: BP 124/74
[2018-01-14 01:40] VITALS: BP 110/60
[2018-01-14] MEDS: ARIPiprazole 15 MG TABLET PO SCH (08:15)
[2018-01-14 08:18] VITALS: BP 104/63
[2018-01-14] MEDS: LORazepam 2 MG TABLET PO PRN (08:20)
[2018-01-14 16:02] VITALS: BP 118/71
[2018-01-15 03:37] VITALS: BP 120/77
[2018-01-15 08:18] VITALS: BP 102/65
[2018-01-15] MEDS: ARIPiprazole 15 MG TABLET PO SCH (08:36)
[2018-01-15] MEDS: LORazepam 2 MG TABLET PO PRN (09:03)
[2018-01-16 03:19] VITALS: BP 110/70
[2018-01-16] MEDS: ARIPiprazole 15 MG TABLET PO SCH (08:26)
[2018-01-16] MEDS: LORazepam 2 MG TABLET PO PRN (08:27)
[2018-01-16 08:31] VITALS: BP 107/62
[2018-01-16 16:00] VITALS: BP 110/69
[2018-01-16] MEDS: DIVALPROEX SODIUM 500 MG DR TABLET PO SCH (17:17)
[2018-01-17 01:40] VITALS: BP 112/68
[2018-01-17 08:10] LABS: BASOPHILS % (AUTO) 0.6 % (0.0-2.0); EOSINOPHILS % (AUTO) 0.7 % (1.0-6.0); HEMATOCRIT 40.5 % (36-46); HEMOGLOBIN 13.9 g/dL (12.0-16.0); LYMPHOCYTES % (AUTO) 28.1 % (22.0-44.0); MEAN CORPUSCULAR HEMOGLOBIN 31.4 pg (26.0-34.0); MEAN CORPUSCULAR HGB CONC 34.3 G/dL (31.0-37.0); MEAN CORPUSCULAR VOLUME 91 fL (80-100); MONOCYTES # (AUTO) 0.7 K/uL (0.1-1.0); MONOCYTES % (AUTO) 6.3 % (2.0-9.0); NEUTROPHILS # (AUTO) 6.8 K/uL (1.8-7.7); NEUTROPHILS % (AUTO) 64.3 % (40.0-70.0); PLATELET COUNT (AUTO) 264 K/uL (150-450); RED BLOOD CELL COUNT(AUTO) 4.44 MIL/uL (4.00-5.20); RED CELL DISTRIBUTION WIDTH 12.9 % (11.5-14.5)
[2018-01-17] MEDS: OLANZapine 5 MG TABLET PO PRN (08:11)
[2018-01-17] MEDS: ARIPiprazole 15 MG TABLET PO SCH (08:11)
[2018-01-17] MEDS: LORazepam 2 MG TABLET PO PRN ×2 (08:11→16:48)
[2018-01-17] MEDS: DIVALPROEX SODIUM 500 MG DR TABLET PO SCH ×2 (08:11→17:00)
[2018-01-17 08:49] LABS: ALANINE AMINOTRANSFERASE 14 U/L (12-78); ALBUMIN 3.6 g/dL (3.4-5.0); ALKALINE PHOSPHATASE 68 U/L (46-116); ANION GAP 6 mmol/L (8-16); ASPARTATE AMINOTRANSFERASE 14 U/L (15-37); BILIRUBIN,TOTAL 0.3 mg/dL (0.1-1.0); CALCIUM, TOTAL 8.7 mg/dL (8.8-10.5); CARBON DIOXIDE 27 mmol/L (22-29); CHLORIDE 106 mmol/L (98-107); CHOL/HDL RATIO 2.4 (3.9-5.7); CHOLESTEROL 113 mg/dL (131-200); CREATININE 0.78 mg/dL (0.60-1.30); GLOMERULAR FILTR. RATE CALC > 60 mL/min (>60); GLUCOSE,RANDOM 85 mg/dL (70-110); HCG,QUANTITATIVE < 1 mIU/mL (0-6); HDL CHOLESTEROL 47 mg/dL (40-60); LDL CHOL (CALC.) 58 mg/dL (0-130); POTASSIUM 4.4 mmol/L (3.5-5.1); SODIUM SERUM 139 mmol/L (136-145); THYROID STIMULATING HORMONE 1.33 uIU/mL (0.36-3.74); TOTAL PROTEIN, SERUM 7.3 g/dL (6.4-8.2); TRIGLYCERIDES 41 mg/dL (15-150); UREA NITROGEN, BLOOD 13 mg/dL (7-18)
[2018-01-17 09:11] VITALS: BP 100/56
[2018-01-17 09:31] LABS: HEMOGLOBIN A1C 5.2 % (4.5-6.2)
[2018-01-17 16:05] VITALS: BP 122/65
[2018-01-17] MEDS ORDERED: ARIPiprazole LAUROXIL ER SUSPENSION 882 MG/3.2 ML SYRINGE IM SCH (18:00)
[2018-01-18] MEDS: LORazepam 2 MG TABLET PO PRN (05:02)
[2018-01-18 05:48] VITALS: BP 115/62
[2018-01-18] MEDS: DIVALPROEX SODIUM 500 MG DR TABLET PO SCH (08:26)
[2018-01-18] MEDS: ARIPiprazole 15 MG TABLET PO SCH (08:26)
[2018-01-18 08:34] VITALS: BP 112/79
[2018-01-18] MEDS ORDERED: ARIP882S IM (12:12)
[2018-01-18] MEDS ORDERED: DIVA250T4 PO (12:12)
[2018-01-18] MEDS ORDERED: ARIP30TA PO (12:12)
== END 2018-01-18 13:30 | disposition home or self-care (01) | DRG 750 ==
LOC: B3A 03:30
PROVIDERS: ADMIT Psychiatry & Neurology Psychiatry; ATTEND Psychiatry & Neurology Psychiatry
DX: F20.0 Paranoid schizophrenia (principal); E88.09 Other disorders of plasma-protein metabolism, not elsewhere classified; I10 Essential (primary) hypertension; Z79.899 Other long term (current) drug therapy; Z91.19 Patient's noncompliance with other medical treatment and regimen; F32.9 Major depressive disorder, single episode, unspecified
CPT/HCPCS: 83036; 84439; 84443; 87081

== ENCOUNTER 2020-01-03 23:40 | Inpatient (IN) | payer MEDICAID ==
[~2020-01-03] VITALS: Ht 170.2 cm; Wt 93.5 kg
[~2020-01-03 23:40] MED LIST changes: +ARIP30TA PO; +ARIP882S IM; +DIVA250T4 PO; -RISP3 PO
[2020-01-04] MEDS ORDERED: ZOLPIDEM TARTRATE 10 MG TABLET PO PRN ×2 (03:15→04:45)
[2020-01-04] MEDS ORDERED: HALOPERIDOL 5 MG TABLET PO PRN ×2 (03:15→04:45)
[2020-01-04] MEDS ORDERED: LORazepam 2 MG TABLET PO PRN (03:15)
[2020-01-04 04:42] LABS: APPEARANCE,URINE CLOUDY (CLEAR); GLUCOSE, URINE (UA) NEGATIVE (NEGATIVE); KETONES,URINE NEGATIVE (NEGATIVE); LEUKOCYTE ESTERASE ,URINE MODERATE (NEGATIVE); NITRATE,URINE NEGATIVE (NEGATIVE); OCCULT BLOOD,URINE NEGATIVE (NEGATIVE); PH,URINE 5.5 (5.0-8.0); PROTEIN,URINE NEGATIVE (NEGATIVE)
[2020-01-04 04:43] LABS: BILIRUBIN,URINE PRELIM. POSITIVE (NEGATIVE)
[2020-01-04 04:51] LABS: AMPHET/METH SCREEN,URINE NEGATIVE (NEGATIVE); BARBITURATE SCREEN, URINE NEGATIVE (NEGATIVE); BENZODIAZEPINES SCREEN,URINE NEGATIVE (NEGATIVE); CANNABINOID SCREEN,URINE NEGATIVE (NEGATIVE); COCAINE SCREEN,URINE NEGATIVE (NEGATIVE); METHADONE SCREEN, URINE NEGATIVE (NEGATIVE); OPIATE SCREEN,URINE NEGATIVE (NEGATIVE)
[2020-01-04 04:55] LABS: PHENCYCLIDINE SCREEN,URINE NEGATIVE (NEGATIVE)
[2020-01-04 05:24] LABS: BACTERIA,URINE Moderate /HPF (None Seen); RBC,URINE 0-2 /HPF (0-2); SQUAMOUS EPITHELIAL CELL,UR Few /LPF (None Seen); WBC,URINE 26-50 /HPF (0-5)
[2020-01-04] MEDS ORDERED: SULFAMETHOX/TRIMETH DS 800-160 MG/TABLET PO ONE (05:45)
[2020-01-04 08:05] LABS: BASOPHILS % (AUTO) 0.6 % (0.0-2.0); EOSINOPHILS % (AUTO) 2.6 % (1.0-6.0); HEMATOCRIT 38.5 % (36-46); HEMOGLOBIN 12.7 g/dL (12.0-16.0); LYMPHOCYTES # (AUTO) 2.1 K/uL (1.0-4.8); LYMPHOCYTES % (AUTO) 28.9 % (22.0-44.0); MEAN CORPUSCULAR HEMOGLOBIN 29.3 pg (26.0-34.0); MEAN CORPUSCULAR HGB CONC 32.9 G/dL (31.0-37.0); MEAN CORPUSCULAR VOLUME 89 fL (80-100); MONOCYTES # (AUTO) 0.5 K/uL (0.1-1.0); MONOCYTES % (AUTO) 7.7 % (2.0-9.0); NEUTROPHILS # (AUTO) 4.3 K/uL (1.8-7.7); NEUTROPHILS % (AUTO) 60.2 % (40.0-70.0); PLATELET COUNT (AUTO) 242 K/uL (150-450); RED BLOOD CELL COUNT(AUTO) 4.33 MIL/uL (4.00-5.20); RED CELL DISTRIBUTION WIDTH 13.8 % (11.5-14.5)
[2020-01-04 08:16] LABS: ANION GAP 7 mmol/L (8-16); CARBON DIOXIDE 27 mmol/L (22-29); CHLORIDE 105 mmol/L (98-107); CREATININE 0.58 mg/dL (0.60-1.30); GLUCOSE,RANDOM 115 mg/dL (70-110); POTASSIUM 3.7 mmol/L (3.5-5.1); SODIUM SERUM 139 mmol/L (136-145); UREA NITROGEN, BLOOD 8 mg/dL (7-18)
[2020-01-04 08:17] LABS: GLOMERULAR FILTR. RATE CALC > 60 mL/min (>60)
[2020-01-04 08:30] LABS: ALANINE AMINOTRANSFERASE 21 U/L (12-78); ALBUMIN 3.8 g/dL (3.4-5.0); ALKALINE PHOSPHATASE 62 U/L (46-116); ASPARTATE AMINOTRANSFERASE 11 U/L (15-37); BILIRUBIN,TOTAL 0.1 mg/dL (0.1-1.0); HCG,QUANTITATIVE < 1 mIU/mL (0-6); TOTAL PROTEIN, SERUM 6.8 g/dL (6.4-8.2)
[2020-01-04 08:31] LABS: VALPROIC ACID < 3 mcg/mL (50-100)
[2020-01-04] MEDS ORDERED: CloNIDine HCL 0.1 MG TABLET PO PRN (08:45)
[2020-01-04] MEDS ORDERED: LOPERAMIDE HCL 2 MG CAPSULE PO PRN (08:45)
[2020-01-04] MEDS ORDERED: PETROLATUM,WHITE 28 GM JELLY TP PRN (08:45)
[2020-01-04] MEDS ORDERED: MAG HYDROX/AL HYDROX/SIMETH ES 30 ML SUSPENSION UDCUP PO PRN (08:45)
[2020-01-04] MEDS ORDERED: ONDANSETRON HCL 4 MG TABLET PO PRN (08:45)
[2020-01-04] MEDS ORDERED: NICOTINE 14 MG/24 HOUR PATCH TD PRN (08:45)
[2020-01-04] MEDS ORDERED: ALBUTEROL SULFATE HFA 90 MCG/PUFF 8 GM INHALER IH PRN (08:45)
[2020-01-04] MEDS ORDERED: GuaiFENesin/D-METHORPHAN [SUGAR-FREE] 200-20MG/10 ML SYRUP UDCUP PO PRN (08:45)
[2020-01-04] MEDS ORDERED: MAGNESIUM HYDROXIDE SUSPENSION 30 ML UDCUP PO PRN (08:45)
[2020-01-04] MEDS ORDERED: ACETAMINOPHEN 325 MG TABLET PO PRN (08:45)
[2020-01-04] MEDS ORDERED: DOCUSATE SODIUM 100 MG CAPSULE PO PRN (08:45)
[2020-01-04 18:08] VITALS: BP 130/69
[2020-01-05] MEDS ORDERED: PNEUMOCOCCAL VACCINE POLYVALENT 0.5 ML VIAL [PPSV23] IM ONE (01:00)
[2020-01-05 01:26] VITALS: BP 126/74
[2020-01-05 08:08] VITALS: BP 107/66
[2020-01-05 08:12] VITALS: BP 122/72
[2020-01-05] MEDS: LORazepam 2 MG TABLET PO PRN ×2 (08:51→16:22)
[2020-01-05] MEDS: SULFAMETHOX/TRIMETH DS 800-160 MG/TABLET PO SCH ×2 (10:12→15:56)
[2020-01-05] MEDS: ARIPiprazole 15 MG TABLET PO SCH (12:21)
[2020-01-05] MEDS: DIVALPROEX SODIUM 500 MG DR TABLET PO SCH (15:56)
[2020-01-05 16:01] VITALS: BP 120/75
[2020-01-06 03:56] VITALS: BP 118/64
[2020-01-06 08:02] VITALS: BP 109/66
[2020-01-06 08:18] LABS: CHOL/HDL RATIO 3.1 (3.9-5.7)
[2020-01-06] MEDS: SULFAMETHOX/TRIMETH DS 800-160 MG/TABLET PO SCH ×2 (08:53→16:06)
[2020-01-06] MEDS: LORazepam 2 MG TABLET PO PRN ×2 (08:53→17:50)
[2020-01-06] MEDS: ARIPiprazole 15 MG TABLET PO SCH (08:53)
[2020-01-06] MEDS: DIVALPROEX SODIUM 500 MG DR TABLET PO SCH (08:53)
[2020-01-06] MEDS: VALPROIC ACID 250 MG/5 ML SYRUP UDCUP PO SCH (16:06)
[2020-01-06 16:09] VITALS: BP 111/62
[2020-01-07 01:32] VITALS: BP 105/69
[2020-01-07 08:19] VITALS: BP 102/70
[2020-01-07] MEDS: ARIPiprazole 15 MG TABLET PO SCH (08:44)
[2020-01-07] MEDS: SULFAMETHOX/TRIMETH DS 800-160 MG/TABLET PO SCH ×2 (08:44→18:05)
[2020-01-07] MEDS: VALPROIC ACID 250 MG/5 ML SYRUP UDCUP PO SCH ×2 (08:45→18:05)
[2020-01-07 16:06] VITALS: BP 104/68
[2020-01-08 01:04] VITALS: BP 116/72
[2020-01-08] MEDS: ARIPiprazole 15 MG TABLET PO SCH (08:24)
[2020-01-08] MEDS: VALPROIC ACID 250 MG/5 ML SYRUP UDCUP PO SCH ×2 (08:24→17:17)
[2020-01-08 08:32] VITALS: BP 119/60
[2020-01-08 16:12] VITALS: BP 105/67
[2020-01-08] MEDS: IBUPROFEN 400 MG TABLET PO PRN (18:41)
[2020-01-09 04:03] VITALS: BP 106/75
[2020-01-09] MEDS: ARIPiprazole 15 MG TABLET PO SCH (08:18)
[2020-01-09] MEDS: VALPROIC ACID 250 MG/5 ML SYRUP UDCUP PO SCH ×2 (08:19→17:04)
[2020-01-09 08:23] VITALS: BP 108/62
[2020-01-09 16:05] VITALS: BP 116/69
[2020-01-09] MEDS: LORazepam 2 MG TABLET PO PRN (18:16)
[2020-01-10 00:25] VITALS: BP 106/55
[2020-01-10 08:10] VITALS: BP 121/66
[2020-01-10] MEDS: ARIPiprazole 15 MG TABLET PO SCH (08:25)
[2020-01-10] MEDS: VALPROIC ACID 250 MG/5 ML SYRUP UDCUP PO SCH ×2 (08:25→16:25)
[2020-01-10 16:02] VITALS: BP 104/59
[2020-01-11 02:37] VITALS: BP 100/69
[2020-01-11] MEDS: VALPROIC ACID 250 MG/5 ML SYRUP UDCUP PO SCH ×2 (08:02→15:58)
[2020-01-11] MEDS: ARIPiprazole 15 MG TABLET PO SCH (08:03)
[2020-01-11] MEDS: IBUPROFEN 400 MG TABLET PO PRN (08:05)
[2020-01-11 08:53] VITALS: BP 118/79
[2020-01-11 09:06] VITALS: BP 110/64
[2020-01-11 16:02] VITALS: BP 129/74
[2020-01-11] MEDS: LORazepam 2 MG TABLET PO PRN (16:09)
[2020-01-12 06:34] VITALS: BP 101/61
[2020-01-12 08:02] VITALS: BP 110/78
[2020-01-12] MEDS: VALPROIC ACID 250 MG/5 ML SYRUP UDCUP PO SCH ×2 (08:08→16:47)
[2020-01-12] MEDS: ARIPiprazole 15 MG TABLET PO SCH (08:09)
[2020-01-12] MEDS: LORazepam 2 MG TABLET PO PRN (10:11)
[2020-01-12 16:12] VITALS: BP 113/58
[2020-01-13 03:39] VITALS: BP 106/58
[2020-01-13] MEDS: VALPROIC ACID 250 MG/5 ML SYRUP UDCUP PO SCH (08:07)
[2020-01-13] MEDS: ARIPiprazole 15 MG TABLET PO SCH (08:07)
[2020-01-13 08:18] VITALS: BP 114/68
[2020-01-13] MEDS ORDERED: VALP250S23 PO (08:46)
== END 2020-01-13 12:15 | disposition home or self-care (01) | DRG 753 ==
LOC: EMS 23:40 → B3A 01-04 13:08 → UNDOADMIN 01-04 13:48 → B3A 01-04 13:48
PROVIDERS: ADMIT Psychiatry & Neurology Child & Adolescent Psychiatry; ATTEND Psychiatry & Neurology Child & Adolescent Psychiatry
DX: F31.5 Bipolar disorder, current episode depressed, severe, with psychotic features (principal); G44.209 Tension-type headache, unspecified, not intractable; I10 Essential (primary) hypertension; N39.0 Urinary tract infection, site not specified; R45.851 Suicidal ideations; F41.9 Anxiety disorder, unspecified; Z03.818 Encounter for observation for suspected exposure to other biological agents ruled out
CPT/HCPCS: 87086; 87426; 90732; G0480